=== PATIENT | female | born 1950 | race Caucasian/White ===

== ENCOUNTER → 2016-08-07 | Outpatient (CLI) | payer OTHER ==
[~2016-08-07] MED LIST: AMITRIPTYLINE H10 MG PO; ATORVASTATIN CA20 M1 PO; CIPRO 500MG TA500 MG PO; IBU800 MG PO; LASIX40 MG PO; LOSARTAN-HCTZ 100-25 PO; METFORMIN ER500 M1 PO; PHENERGAN VC +120 ML PO; TESSALON PERLE100 MG PO
--- NOTE | 2016-08-13 08:12 | RADIOLOGY REPORT PS360 ---
[facility] CLINICAL INDICATION: FOR PARTIAL PLCEMENT ORDERING PHYSICIAN: ELMIRA CHAN PATIENT AGE: 66 years COMPARISON: None FINDINGS: No fracture or lytic process of the mandible.. There are several missing teeth in the maxilla and left mandible. No fracture or dislocation. There is some mild flattening of the left mandibular condyle system with osteoarthritic change of the TMJ IMPRESSION: Left-sided TMJ arthropathy.
== END ==
LOC: RAD 08:52
DX: K06.9 Disorder of gingiva and edentulous alveolar ridge, unspecified (principal)